=== PATIENT | female | born 2000 | race Caucasian/White ===

== ENCOUNTER 2018-05-25 03:47 | Emergency (ER) | payer OTHER ==
[~2018-05-25] VITALS: Ht 160 cm; Wt 52.2 kg
[2018-05-25 03:51] VITALS: BP 102/67
[2018-05-25] MEDS ORDERED: PROMETHAZINE 25 MG/ML, 1ML ONE (04:19)
[2018-05-25] MEDS ORDERED: DICYCLOMINE 10 MG/ML, 2ML ONE (04:19)
[2018-05-25] MEDS ORDERED: PLEASE ENTER ALLERGIES MC SCH (04:30)
[2018-05-25] MEDS ORDERED: DICYCLOMINE 10 MG/ML, 2ML IM ONE (04:30)
[2018-05-25] MEDS ORDERED: PROMETHAZINE 25 MG/ML, 1ML IM ONE (04:30)
[2018-05-25 04:41] LABS: BASOPHILS # (AUTO) 0.01 x10^3/uL (0-0.3); BASOPHILS % (AUTO) 0 % (0-1); EOSINOPHILS # (AUTO) 0.18 x10^3/uL (0-0.8); EOSINOPHILS % (AUTO) 2 % (1-7); LYMPHOCYTES # (AUTO) 0.85 x10^3/uL (1-6.1); LYMPHOCYTES % (AUTO) 10 % (22-44); MD NO; MEAN CORPUSCULAR HEMOGLOBIN 31.2 pg (27.0-34.8); MEAN CORPUSCULAR HGB CONC 33.7 g/dL (32.4-35.8); MEAN CORPUSCULAR VOLUME 92.7 fL (80-100); MEAN PLATELET VOLUME 10.8 fL (7.4-10.4); MONOCYTES # (AUTO) 0.33 x10^3/uL (0-1.4); MONOCYTES % (AUTO) 4 % (2-9); NEUTROPHILS # (AUTO) 7.54 x10^3/uL (1.8-8.0); NEUTROPHILS % (AUTO) 85 % (42-75); PLATELET COUNT 192 x10^3/uL (130-400); RED BLOOD COUNT 4.87 x10^6/uL (3.82-5.3); RED CELL DISTRIBUTION WIDTH 13.2 % (9.6-15.2)
[2018-05-25] MEDS ORDERED: ALBU18HF PO (04:43)
[2018-05-25] MEDS ORDERED: ALBU2.5V11 NEB (04:43)
[2018-05-25 04:52] LABS: ALBUMIN 3.5 g/dL (3.4-5.0); ANION GAP 8 mmol/L (5-15); CALCIUM 9.4 mg/dL (8.5-10.1); CHLORIDE 108 mmol/L (98-107)
[2018-05-25 04:58] LABS: ALANINE AMINOTRANSFERASE 29 U/L (12-78); ALKALINE PHOSPHATASE 33 U/L (45-117); BILIRUBIN,TOTAL 0.7 mg/dL (0.2-1.0); CREATININE 0.91 mg/dL (0.55-1.02); TOTAL PROTEIN 7.1 g/dL (6.4-8.2)
== END 2018-05-25 06:17 | disposition home or self-care (01) ==
LOC: ED 06:11
DX: R63.0 Anorexia (principal); R19.7 Diarrhea, unspecified; R10.84 Generalized abdominal pain
CPT/HCPCS: 36415; 80053; 83690; 84703; 85025; 96372; 99284; J0500; J2550

== ENCOUNTER 2019-01-31 20:44 | Emergency (ER) | payer OTHER ==
[~2019-01-31] VITALS: Ht 160 cm; Wt 52.1 kg
[~2019-01-31 20:44] MED LIST: ALBU18HF PO; ALBU2.5V11 NEB
[2019-01-31 20:46] VITALS: BP 109/77
--- NOTE | 2019-01-31 21:21 | NUR ---
INITIAL CONTACT WITH PT. ASSESSMENT DONE. PT HAS BEEN SEEN BY PROVIDER AND ORDERS HAVE BEEN PLACED.
[2019-01-31] MEDS ORDERED: CEFTRIAXONE 250 MG ONE (21:25)
[2019-01-31] MEDS ORDERED: AZITHROMYCIN 250 MG TABLET ONE (21:25)
[2019-01-31] MEDS ORDERED: LIDOCAINE-MPF 1%, 5ML ONE (21:27)
[2019-01-31] MEDS ORDERED: CEFTRIAXONE 250 MG IM ONE (21:30)
[2019-01-31] MEDS ORDERED: AZITHROMYCIN 500 MG TABLET PO ONE (21:30)
[2019-01-31 21:53] LABS: CULTURE INDICATED? YES; HCG UR SG 1.025 (1.003-1.030); MICROSCOPIC INDICATED
[2019-01-31 22:28] LABS: WET PREP WBCS MODERATE (FEW)
[2019-01-31 22:33] LABS: CLUE CELLS PRESENT (NONE SEEN)
--- NOTE | 2019-01-31 22:48 | NUR ---
PT RESTING QUIETLY, LAB RESULTS PENDING.
[2019-01-31] MEDS ORDERED: metroNIDAZOLE 500 MG TABLET ONE (23:37)
[2019-01-31] MEDS ORDERED: CEFDINIR 300 MG CAPSULE ONE (23:38)
--- NOTE | 2019-01-31 23:46 | NUR ---
PT DC'D HOME WITH RX X 3 AND UNDERSTANDING OF INSTRUCTIONS. PT ESCORTED TO DC DESK, GAIT STEADY.
[2019-02-01] MEDS ORDERED: metroNIDAZOLE 500 MG TABLET PO ONE
[2019-02-01] MEDS ORDERED: CEFDINIR 300 MG CAPSULE PO ONE
== END 2019-01-31 23:48 | disposition home or self-care (01) ==
LOC: ED 23:40
DX: N30.00 Acute cystitis without hematuria (principal); N76.0 Acute vaginitis; B96.89 Other specified bacterial agents as the cause of diseases classified elsewhere; F17.200 Nicotine dependence, unspecified, uncomplicated; Z88.2 Allergy status to sulfonamides
CPT/HCPCS: 81001; 81025; 87077; 87086; 87186; 87210; 87491; 87591; 87808; 96372; 99284; J0696

== ENCOUNTER → 2019-06-14 | Outpatient (CLI) | payer OTHER ==
[2019-06-14 15:03] LABS: ALANINE AMINOTRANSFERASE 24 U/L (12-78); ALBUMIN 4.6 g/dL (3.4-5.0); ANION GAP 5 mmol/L (5-15); CALCIUM 9.2 mg/dL (8.5-10.1); CHLORIDE 110 mmol/L (98-107)
[2019-06-14 15:05] LABS: BASOPHILS # (AUTO) 0.04 x10^3/uL (0-0.1); BASOPHILS % (AUTO) 1 % (0-1); EOSINOPHILS % (AUTO) 2 % (1-7); LYMPHOCYTES # (AUTO) 1.94 x10^3/uL (1-3.4); LYMPHOCYTES % (AUTO) 31 % (22-44); MD NO; MEAN CORPUSCULAR HEMOGLOBIN 31.8 pg (27.0-34.8); MEAN CORPUSCULAR HGB CONC 33.4 g/dL (32.4-35.8); MEAN PLATELET VOLUME 10.7 fL (7.4-10.4); MONOCYTES # (AUTO) 0.33 x10^3/uL (0.2-0.8); MONOCYTES % (AUTO) 5 % (2-9); NEUTROPHILS # (AUTO) 3.89 x10^3/uL (1.8-6.8); NEUTROPHILS % (AUTO) 62 % (42-75); PLATELET COUNT 183 x10^3/uL (130-400); RED BLOOD COUNT 4.94 x10^6/uL (3.82-5.3); RED CELL DISTRIBUTION WIDTH 12.9 % (9.6-15.2)
[2019-06-14 15:12] LABS: ALKALINE PHOSPHATASE 48 U/L (45-117); BILIRUBIN,TOTAL 0.9 mg/dL (0.2-1.0); CHOL/HDL RATIO 2.4; CHOLESTEROL, TOTAL 170 mg/dL (140-239); CREATININE 0.86 mg/dL (0.55-1.02); FREE T4 (FREE THYROXINE) 1.04 ng/dL (0.76-1.46); HDL CHOL % 41 % (28-40); HDL CHOLESTEROL (DIRECT) 70 mg/dL (40-60); LDL CHOLESTEROL,CALCULATED 89 mg/dL (54-169); LDL/HDL RATIO 1.3 (0.5-3.0); TOTAL PROTEIN 7.9 g/dL (6.4-8.2); TRIGLYCERIDES 53 mg/dL (50-200); VLDL CHOLESTEROL 11 mg/dL (0-25)
== END | disposition home or self-care (01) ==
LOC: LAB 14:29
PROVIDERS: ATTEND Family Medicine
DX: Z00.00 Encounter for general adult medical examination without abnormal findings (principal); Z87.891 Personal history of nicotine dependence
CPT/HCPCS: 36415; 80053; 80061; 84439; 84443; 84481; 85025; 86376; 86800

== ENCOUNTER 2019-06-29 19:33 | Emergency (ER) | payer OTHER ==
[~2019-06-29] VITALS: Ht 160 cm; Wt 54.1 kg
[2019-06-29] MEDS ORDERED: DIAZEPAM 5 MG TABLET ONE (20:06)
[2019-06-29] MEDS ORDERED: KETOROLAC 30 MG/1 ML ONE (20:07)
[2019-06-29] MEDS ORDERED: KETOROLAC 30 MG/1 ML IM ONE (20:30)
[2019-06-29] MEDS ORDERED: DIAZEPAM 5 MG TABLET PO ONE (20:30)
[2019-06-29 21:12] VITALS: BP 106/74
== END 2019-06-29 21:14 ==
LOC: ED 21:08
DX: S39.012A Strain of muscle, fascia and tendon of lower back, initial encounter (principal); J45.909 Unspecified asthma, uncomplicated; X58.XXXA Exposure to other specified factors, initial encounter; Y93.89 Activity, other specified; Y92.89 Other specified places as the place of occurrence of the external cause; Y99.8 Other external cause status
CPT/HCPCS: 96372; 99283; J1885

== ENCOUNTER 2019-08-10 22:14 | Emergency (ER) | payer OTHER ==
[~2019-08-10] VITALS: Ht 160 cm; Wt 53.0 kg
[2019-08-10 22:15] VITALS: BP 148/92
--- NOTE | 2019-08-10 22:41 | NUR ---
PA AT BEDSIDE TO ASSESS PT
--- NOTE | 2019-08-10 23:06 | NUR ---
Patient/Caregiver given discharge instructions and they have confirmed that they understand the instructions. Patient ambulatory with steady gait.
== END 2019-08-10 23:07 | disposition home or self-care (01) ==
LOC: ED 22:28
DX: L05.91 Pilonidal cyst without abscess (principal); F17.210 Nicotine dependence, cigarettes, uncomplicated
CPT/HCPCS: 99283

== ENCOUNTER → 2019-12-12 | Outpatient (CLI) | payer OTHER ==
[2019-12-12 16:53] LABS: ANION GAP 6 mmol/L (5-15); CALCIUM 9.5 mg/dL (8.5-10.1); CHLORIDE 111 mmol/L (98-107)
[2019-12-12 17:02] LABS: BASOPHILS # (AUTO) 0.02 x10^3/uL (0-0.1); BASOPHILS % (AUTO) 0 % (0-1); EOSINOPHILS # (AUTO) 0.03 x10^3/uL (0-0.4); EOSINOPHILS % (AUTO) 0 % (1-7); LYMPHOCYTES # (AUTO) 1.82 x10^3/uL (1-3.4); LYMPHOCYTES % (AUTO) 23 % (22-44); MD NO; MEAN CORPUSCULAR HEMOGLOBIN 31.7 pg (27.0-34.8); MEAN CORPUSCULAR HGB CONC 33.6 g/dL (32.4-35.8); MEAN CORPUSCULAR VOLUME 94.4 fL (80-100); MEAN PLATELET VOLUME 10.9 fL (7.4-10.4); MONOCYTES % (AUTO) 4 % (2-9); NEUTROPHILS % (AUTO) 73 % (42-75); PLATELET COUNT 216 x10^3/uL (130-400); RED BLOOD COUNT 4.95 x10^6/uL (3.82-5.3); RED CELL DISTRIBUTION WIDTH 13.5 % (9.6-15.2)
[2019-12-12 17:20] LABS: ALANINE AMINOTRANSFERASE 29 U/L (12-78); ALKALINE PHOSPHATASE 41 U/L (45-117); BILIRUBIN,TOTAL 0.5 mg/dL (0.2-1.0); CHOLESTEROL, TOTAL 212 mg/dL (140-239); CREATININE 0.94 mg/dL (0.55-1.02); FREE T4 (FREE THYROXINE) 1.17 ng/dL (0.76-1.46); HDL CHOL % 33 % (28-40); HDL CHOLESTEROL (DIRECT) 71 mg/dL (40-60); LDL CHOLESTEROL,CALCULATED 128 mg/dL (54-169); LDL/HDL RATIO 1.8 (0.5-3.0); TOTAL PROTEIN 8.1 g/dL (6.4-8.2); TRIGLYCERIDES 67 mg/dL (50-200); VLDL CHOLESTEROL 13 mg/dL (0-25)
[2019-12-12 17:22] LABS: FOLATE LEVEL > 20.0 ng/mL (3.1-17.5)
== END | disposition home or self-care (01) ==
LOC: LAB 16:14
PROVIDERS: ATTEND Family Medicine
DX: E78.5 Hyperlipidemia, unspecified (principal); E03.9 Hypothyroidism, unspecified; E55.9 Vitamin D deficiency, unspecified; R53.83 Other fatigue; Z79.899 Other long term (current) drug therapy
CPT/HCPCS: 36415; 80053; 80061; 82306; 82607; 82746; 84439; 84443; 84481; 85025; 86376; 86800

== ENCOUNTER 2020-06-16 12:07 | Emergency (ER) | payer OTHER ==
[~2020-06-16] VITALS: Ht 160 cm; Wt 56.0 kg
--- NOTE | 2020-06-16 12:25 | NUR ---
CONTACT WITH PT, 20 YR OLD FEMALE HERE WITH C/O "I'M NOT SURE IF I'M GETTING A UTI. URINE A LITTLE CLOUDY. I HAVE ALSO HAD A BIG HISTORY OF YEAST INFECTION. I'VE HAD A LITTLE BLOOD IN MY DISCHARGE" WATER TRAINER AT BEDSIDE TO DRAW BLOOD. [facility]OK[employer] OROURKE AT BEDSIDE TO MARCELLUS PT.
[2020-06-16 13:01] LABS: MICROSCOPIC AUTO
[2020-06-16 14:25] VITALS: BP 131/68
== END 2020-06-16 14:27 | disposition home or self-care (01) ==
LOC: ED 12:59
DX: N30.00 Acute cystitis without hematuria (principal); J45.909 Unspecified asthma, uncomplicated; F17.200 Nicotine dependence, unspecified, uncomplicated
CPT/HCPCS: 36415; 81001; 84703; 87086; 99283